=== PATIENT | female | born 1950 | race Caucasian/White ===

== ENCOUNTER 2020-10-11 07:42 | Outpatient (CLI) | payer MEDICARE ==
--- NOTE | 2020-10-12 15:25 | Mammography Report ---
BILATERAL DIGITAL SCREENING MAMMOGRAM 3D/2D: 10/11/2020 CLINICAL: Routine screening. Comparison is made to exams dated: 10/16/2019 mammogram and 11/08/2017 mammogram - [facility]. The tissue of both breasts is predominantly fatty. No significant masses, calcifications, or other findings are seen in either breast. There has been no significant interval change. IMPRESSION: NEGATIVE There is no mammographic evidence of malignancy. A 1 year screening mammogram is recommended. This exam was interpreted at Station ID: [id number]. NOTE: For mammograms, a report in lay terms will be sent to the patient. Approximately 15% of breast malignancies will not be visualized mammographically. In the management of a palpable breast mass, a negative mammogram must not discourage biopsy of a clinically suspicious lesion. Electronically Signed By: Ross Tijerina acr/penrad:10/11/2020 09:56:06 ACR BI-RADS Category 1: Negative 3341F PARENCHYMAL PATTERN: (F) - The breast(s) demonstrate(s) diffuse fatty replacement. BI-RADS CATEGORY: (1) - 1 RECOMMENDATION: (ANNUAL) - Recommend routine annual screening mammography. [id number] 1 year screening LATERALITY: (B)
== END 2020-10-11 07:43 | disposition home or self-care (01) ==
LOC: DI 07:42
PROVIDERS: ATTEND Nurse Practitioner Family
DX: Z12.31 Encounter for screening mammogram for malignant neoplasm of breast (principal)

== ENCOUNTER 2020-10-25 08:59 | Day surgery (SDC) | payer MEDICARE ==
[2020-10-25] MEDS ORDERED: LACTATED RINGERS 1,000 ML IV ONE ×2 (09:07→10:49)
--- NOTE | 2020-10-25 09:56 | ANESTHESIA ---
Pre-Anesthesia VS, & Labs - Diagnosis polyps, hemorrhoids - Procedure colonoscopy, hemorrhoid banding Vital Signs: Temp Pulse Resp BP Pulse Ox 36.7 C 90 16 137/68 H 99 10/25/20 09:07 10/25/20 09:07 10/25/20 09:07 10/25/20 09:07 10/25/20 09:07 Height: 5 ft Weight (kg): 50.7 kg Body Mass Index: 21.8 BMI Classification: Healthy weight - NPO >8 hours - Is Patient ?: No Home Medications and Allergies Home Medications: Ambulatory Orders Alprazolam [Xanax] 0.25 mg PO ONCE PRN 10/24/20 Aspirin [[place] Aspirin] 1 tab PO DAILY 10/24/20 Rosuvastatin Calcium [Crestor] 20 mg PO DAILY PM 10/24/20 estradioL [Estrace] 0.25 mg PO 10/24/20 Alprazolam [Xanax] 0.25 mg PO ONCE PRN 10/24/20 Aspirin [[place] Aspirin] 1 tab PO DAILY 10/24/20 Rosuvastatin Calcium [Crestor] 20 mg PO DAILY PM 10/24/20 estradioL [Estrace] 0.25 mg PO 10/24/20 Allergies/Adverse Reactions: Allergies Allergy/AdvReac Type Severity Reaction Status Date / Time pneumococcal vaccine Allergy Rash Verified 10/25/20 09:23 [From Pneumovax-23] Anes History & Medical History - Anesthetic History Anesthesia Complications: reports: No previous complications - Medical History Cardiovascular: reports: High cholesterol Pulmonary: reports: None Gastrointestinal: reports: None Urinary: reports: None Musculoskeletal: reports: None Endocrine/Autoimmune: reports: None Skin: reports: None - Surgical History General: reports: Colonoscopy Gynecologic: reports: Dilation and currettage, Hysterectomy, Other Exam General: Alert, Oriented x3 Dental: WNL Mouth Opening: Greater than 4 Fingerbreadths Mallampati classification: II Thyromental Distance: greater than 6 cm Respiratory: Lungs clear Cardiovascular: Regular rate Plan Anesthesia Type: Total IV Consent for Procedure(s) Verified and Reviewed: Yes Code Status: Attempt Resuscitation ASA classification: 2-Mild systemic disease Is this case an emergency?: No
[2020-10-25] MEDS ORDERED: PROPOFOL 1000 MG/100 ML 1,000 MG/100 ML BOTTLE IV ONE (10:11)
[2020-10-25] MEDS ORDERED: LIDOCAINE-PF 2% 10 ML AMP SUBQ ONE (10:18)
--- NOTE | 2020-10-25 10:51 | OPERATIVE REPORT ---
Operative Report - General Procedure Date: 10/25/20 Planned Procedure: Examination under anesthesia with hemorrhoid banding Pre-Op Diagnosis: Troublesome and prolapsing internal hemorrhoids Procedure Performed: Examination under anesthesia with hemorrhoid banding Post Op Diagnosis: Troublesome and prolapsing internal hemorrhoids - Procedure Note Primary Surgeon: Antione Anesthesia Provider: JÚNIOR Chiu Anesthesia Technique: MAC Pathology: None Estimated Blood Loss (mL): 1 Findings: Full kit of prominent prolapsing internal hemorrhoids Complications: None apparent - Other Other Information/Narrative: Colonoscopy was completed immediately prior to the banding procedure. Timeout was done at the start of the colonoscopy procedure.The patient remained sedated with monitored anesthesia care at this time. All elements of the surgical safety checklist were followed before, during, and after this procedure. The anoscope with obturator was lubricated and placed in the patient's anal canal. The obturator was removed and the slots aligned to allow access to 3 column internal hemorrhoids. The device, the TapInko multi band ligator-short shot-was placed into the anal canal. The tip of the device was placed in contact with the tissue to be treated beginning at the 4 o'clock position. The suction port was closed. A single band was deployed and the suction port released.The band was noted to be in place.We next addressed the hemorrhoid complex at 7:00.The tip of the device was placed in contact with the tissue, the suction port covered, a band deployed, the suction port released. Again we were able to see that the band was in place.We next addressed the hemorrhoid at the 11 o'clock position. This was the smallest of the 3. The tip of the device was placed in contact with the tissue, the suction port covered, a band deployed, the suction port released. Again we were able to see that the band was in place.Examination of the anal count canal revealed all [address] The anoscope was removed and the procedure concluded. The patient tolerated the procedure well. She was allowed awaken from sedation and taken to the postanesthesia care unit in good condition.
--- NOTE | 2020-10-25 11:01 | ANESTHESIA POST OP EVALUATION ---
Anesthesia Post Eval - Post Anesthesia Eval Vitals: Last Vital Signs Temp 98.4 C H 10/25/20 10:50 Pulse 77 10/25/20 10:50 Resp 14 10/25/20 10:50 BP 104/57 L 10/25/20 10:50 Pulse Ox 98 10/25/20 10:50 CV Function Including HR & BP: Stable Pain Control: Satisfactory Nausea & Vomiting: Negative Mental Status: Baseline Respiratory Status: Airway Patent Hydration Status: Satisfactory Anesthesia Complications: None
[2020-10-25 11:08] VITALS: BP 130/77
== END 2020-10-25 09:00 | disposition home or self-care (01) ==
LOC: SDS 08:59
PROVIDERS: ATTEND Surgery
PROC: 0DJD8ZZ Inspection of Lower Intestinal Tract, Via Natural or Artificial Opening Endoscopic (ICD-10-PCS; principal; 2020-10-25 10:00)
PROC: 06LY4CC Occlusion of Hemorrhoidal Plexus with Extraluminal Device, Percutaneous Endoscopic Approach (ICD-10-PCS; 2020-10-25 10:00)
DX: Z12.11 Encounter for screening for malignant neoplasm of colon (principal); K64.8 Other hemorrhoids; K57.30 Diverticulosis of large intestine without perforation or abscess without bleeding
CPT/HCPCS: 45378; 46221; J7120

== ENCOUNTER 2022-01-16 08:16 | Outpatient (CLI) | payer MEDICARE ==
--- NOTE | 2022-01-16 17:29 | DEXA Report ---
PROCEDURE: Dexa Spine and/or Hip INDICATIONS: OSTEOPENIA TECHNIQUE: Dual energy x-ray absorptiometry (DXA) was performed on a [employer] System. Regions measur ed are the AP Spine, femoral neck, and if needed forearm. COMPARISON: None. FINDINGS: Lumbar Spine: Bone Mineral Density 1.005 g/cm/cm,T score -1.5. Left Hip: Bone Mineral Density 0.803 g/cm/cm,T score -1.6. Left Femoral Neck: Bone Mineral Density 0.728 g/cm/cm, T score -2.2. (T score greater or equal to -1.0: NORMAL) (T score from -1.1 to -2.4: OSTEOPENIA) (T score less than or equal to -2.5 to: OSTEOPOROSIS) Impression: Osteopenia. Patients with diagnosis of osteoporosis or osteopenia should have regular bone mineral density assess ment. For those eligible for Medicare, routine testing is allowed once every 2 years. Testing frequ ency can be increased for patients who have rapidly progressing disease or for those who are receivin g medical therapy to restore bone mass. Reviewed by: Jose Medrano MD on 01/16/2022 5:27 PM PST Approved by: Jose Medrano MD on 01/16/2022 5:27 PM PST Station ID: [id number]
== END 2022-01-16 08:17 | disposition home or self-care (01) ==
LOC: DI 08:16
PROVIDERS: ATTEND Nurse Practitioner Family
DX: M85.89 Other specified disorders of bone density and structure, multiple sites (principal)

== ENCOUNTER 2022-11-16 07:47 | Outpatient (CLI) | payer MEDICARE ==
--- NOTE | 2022-11-16 15:09 | Mammography Report ---
BILATERAL DIGITAL SCREENING MAMMOGRAM 3D/2D: 11/16/2022 CLINICAL: Routine screening. Comparison is made to exams dated: 10/20/2021 mammogram - [facility], 10/16/2019 mamm ogram - [facility], 10/11/2020 mammogram - [facility], and 10/11 mammogram - [facility]. Both breasts are heterogeneously dense, which may obscure small masses (category c / 51-75% glandular tissue). No significant masses, calcifications, or other findings are seen in either breast. There has been no significant interval change. IMPRESSION: NEGATIVE There is no mammographic evidence of malignancy. A 1 year screening mammogram is recommended. Based on the Tyrer Cuzick model (a risk assessment model) the patients lifetime risk is 6.3% and her 10 year risk is 4.3%. According to the ACR, ACS, and NCCN guidelines, an annual breast MRI exam erin g with mammogram is recommended if the patients lifetime risk is 20% or greater. This exam was interpreted at Station ID: [id number]. NOTE: For mammograms, a report in lay terms will be sent to the patient. Approximately 15% of breast malignancies will not be visualized mammographically. In the management of a palpable breast mass, a negative mammogram must not discourage biopsy of a clinically suspicious lesion. Electronically Signed By: Ross moreno/katy:11/16/2022 12:07:24 letter sent: No_Letter ACR BI-RADS Category 1: Negative 3341F PARENCHYMAL PATTERN: (D) - The breast(s) demonstrate(s) heterogeneously dense fibroglandular yoseph coleman. BI-RADS CATEGORY: (1) - 1 Mammogram [id number] 1 year screening LATERALITY: (B)
== END 2022-11-16 07:48 | disposition home or self-care (01) ==
LOC: DI 07:47
DX: Z12.31 Encounter for screening mammogram for malignant neoplasm of breast (principal)

== ENCOUNTER 2023-02-28 08:03 | Outpatient (CLI) | payer MEDICARE ==
--- NOTE | 2023-02-28 13:21 | XRAY Report ---
PROCEDURE: Chest 2 View X-Ray INDICATIONS: COUGH TECHNIQUE: 2 views of the chest were acquired. COMPARISON: None. FINDINGS: Surgical changes and devices: None. Lungs and pleura: No pleural effusions or pneumothorax. Lungs are clear. Mediastinum: Mediastinal contours appear normal. Heart size is normal. Bones and chest wall: No suspicious bony lesions. Overlying soft tissues appear unremarkable. IMPRESSION: No acute cardiopulmonary process. Reviewed by: Kay Shepard MD on 02/28/2023 1:19 PM PST Approved by: Kay Shepard MD on 02/28/2023 1:19 PM PST Station ID: [id number]
== END 2023-02-28 08:04 | disposition home or self-care (01) ==
LOC: DI 08:03
PROVIDERS: ATTEND Nurse Practitioner Family
DX: R05.9 Cough, unspecified (principal)

== ENCOUNTER 2023-11-19 08:25 | Outpatient (CLI) | payer MEDICARE ==
--- NOTE | 2023-11-20 11:28 | Mammography Report ---
BILATERAL DIGITAL SCREENING MAMMOGRAM 3D/2D: 11/19/2023 CLINICAL: Routine screening. Comparison is made to exams dated: 11/16/2022 mammogram, 10/20/2021 mammogram, 10/11/2020 mammogram - [facility], 10/16/2019 mammogram, and 11/08/2017 mammogram - [facility]. The breasts are heterogeneously dense, which may obscure small masses (category c / 51-75% glandular tissue). No significant masses, calcifications, or other findings are seen in either breast. There has been no significant interval change. IMPRESSION: NEGATIVE There is no mammographic evidence of malignancy. A 1 year screening mammogram is recommended. Based on the Tyrer Cuzick model (a risk assessment model) the patient's lifetime risk is 6.0% and her 10 year risk is 4.5%. According to the ACR, ACS, and NCCN guidelines, an annual breast MRI exam erin g with mammogram is recommended if the patient's lifetime risk is 20% or greater. This exam was interpreted at Station ID: [id number]. NOTE: For mammograms, a report in lay terms will be sent to the patient. Approximately 15% of breast malignancies will not be visualized mammographically. In the management of a palpable breast mass, a negative mammogram must not discourage biopsy of a clinically suspicious lesion. Electronically Signed By: Kay guadalupe/katy:11/19/2023 16:40:53 letter sent: No_Letter ACR BI-RADS Category 1: Negative 3341F PARENCHYMAL PATTERN: (D) - The breast(s) demonstrate(s) heterogeneously dense fibroglandular yoseph coleman. BI-RADS CATEGORY: (1) - 1 RECOMMENDATION: (ANNUAL) - Recommend routine annual screening mammography. [id number] 1 year screening LATERALITY: (B)
== END 2023-11-19 08:26 | disposition home or self-care (01) ==
LOC: DI 08:25
DX: Z12.31 Encounter for screening mammogram for malignant neoplasm of breast (principal); R92.333 Mammographic heterogeneous density, bilateral breasts